=== PATIENT | female | born 2000 | race Caucasian/White ===

== ENCOUNTER 2024-06-08 15:39 | Emergency (ER) | payer MEDICAID, SELFPAY ==
[2024-06-08 15:42] VITALS: BMI 26.6
[2024-06-08 15:47] VITALS: BP 121/80; PULSE 80; RESP 20; TEMP 36.5; O2SAT 100
--- NOTE | 2024-06-08 15:57 | XR_ITS ---
Examination: Complete OB ultrasound, less than 14 weeks, transabdominal Date and time of exam: June 08, 2024, 1640 hrs. Indications: Nausea vomiting pelvic cramping beginning 2 days ago Technique: Obstetrical ultrasound images less than 14 weeks performed via transabdominal imaging Findings: Uterus 9.0 cm, intrauterine gestational sac 1.5 cm corresponds to 6 weeks 2 days gestational age No pole, no cardiac activity Right ovary 2.0 cm arterial flow Left ovary 2.8 cm arterial flow Impression: Empty intrauterine gestational sac corresponding to 6 weeks 2 days gestational age Recommend short-term follow-up transvaginal pelvic sonography to exclude embryonic demise
--- NOTE | 2024-06-08 15:58 | PD.EDADULT ---
ED General RME/HPI General Chief complaint: Abdominal Pain Stated complaint: 10Wk ABD PAIN Time Seen by Provider: 06/08/24 15:50 Arrival date/time: 06/08/24 15:39 RME / HPI RME / HPI narrative: 24-year-old female patient 2 para 1, about 10 weeks , came in for evaluation regarding pelvic pain. Patient is having pelvic pain, for the last few days described as dull ache severity mild associated with vomiting, cannot take anything down for the last 3 days. Patient feels dehydrated. Denies any fever denies any other complaints. Patient also denies any vaginal bleeding spotting dysuria frequency. Have not seen any WET MACHINE CUTTER for checkup yet. Related Data Home Medications ?Medication ?Instructions ?Recorded ?Confirmed vits no.124-ferrous fum tab 09/29/22 27 mg iron-folic acid 800 mcg tablet ( Vitamin) Previous Rx's ?Medication ?Instructions ?Recorded labetalol 100 mg tablet 300 mg (3 x 100 mg) PO BID 30 days 10/14/22 #180 tabs nifedipine 30 mg tablet,extended 60 mg (2 x 30 mg) PO QDAY 30 days 10/14/22 release 24 hr #60 tabs metoclopramide HCl 10 mg tablet 10 mg PO Q6H PRN nausea and 06/08/24 (Reglan) vomiting #20 tabs Allergies Allergy/AdvReac Type Severity Reaction Status Date / Time No Known Allergies Allergy Verified 06/08/24 15:45 Review of Systems Review of Systems Narrative Review of Systems: Review of system reviewed and within normal limits except mentioned in HPI ED Exam Narrative Physical exam: VITAL SIGNS: Reviewed. GENERAL APPEARANCE: Alert and interactive, follows commands, no acute distress, HEAD AND FACE: Non-traumatic. ENT: PERRL, pink conjunctivitis, eyelid no trauma, Mucous membrane dry NECK: Supple, nontender, no nuchal rigidity. CHEST: No tenderness, no crepitus, no paradoxical movement, no retractions. LUNGS: Clear, well ventilated, symmetric, no rales, no wheezing, no ronchi, no stridor, good breath sounds bilaterally. HEART: Regular rate, regular rhythm, no murmur, no gallops. ABDOMEN: Soft, positive bowel sounds, nondistended, no guarding, nontender, no rebound, no masses, RECTAL: Deferred. GENITAL: Deferred. NEUROLOGICAL: Gross motor function intact sensory function intact, Appropriate for age. MUSCULOSKELETAL: low back nontender, full range of motion. EXTREMITIES: Nontender, full range of motion. SKIN: Color pink, dry, no rash, no lacerations, no abrasions, no contusions. LYMPHATICS: Deferred. Course Quality Measures none Orders Category Date Time Status US OB <= 14 weeks fetus Stat Exams 06/08/24 15:57 Completed ABO/RH Type Stat Lab 06/08/24 17:15 Completed Basic Metabolic Panel Stat Lab 06/08/24 17:15 Completed Beta HCG,Quantitative Stat Lab 06/08/24 17:15 Completed CBC Stat Lab 06/08/24 17:15 Completed Urinalysis Stat Lab 06/08/24 19:30 Completed Metoclopramide Inj [Reglan Inj] Med 06/08/24 15:57 Discontinued 10 mg IVP X1 ONE Ondansetron Odt [Zofran Odt] Med 06/08/24 20:26 Discontinued 4 mg PO X1 ONE Sodium Chloride 0.9% 1000 ml [Ns] 1,000 ml Med 06/08/24 15:57 Discontinued IV 999 mls/hr Sodium Chloride 0.9% 1000 ml [Ns] 1,000 ml Med 06/08/24 15:58 Discontinued IV 999 mls/hr Vital Signs Vital signs: Vital Signs Temperature 97.7 F 06/08/24 15:47 Pulse Rate 80 06/08/24 15:47 Respiratory Rate 20 06/08/24 15:47 Blood Pressure 121/80 06/08/24 15:47 Pulse Oximetry (%) 100 06/08/24 15:47 Oxygen Delivery Method Room Air 06/08/24 15:47 [facility] Patient data External records reviewed:: None Clinical information provided by:: patient Social determinants that could affect healthcare access:: none Patient has the following chronic illnesses:: None How is presenting disease/condition affected by chronic disease/condition?: no chronic disease Evaluation data The following diagnostics were reviewed and interpreted by me:: lab results and radiology exam(s) Lab and/or radiology exams considered but not ordered:: None Interpretation Summary: See results in [facility] Medications Medications considered but not ordered:: None Medication administrations:: Medication Administration History Discontinued Medications Sodium Chloride (Ns) 1,000 mls @ 999 mls/hr IV .Q1H1M ONE Stop: 06/08/24 16:57 Last Infusion: 06/08/24 18:04 Dose: Infused Documented By: Admin: 06/08/24 17:04 Dose: 999 mls/hr Documented By: JOSE Sodium Chloride (Ns) 1,000 mls @ 999 mls/hr IV .Q1H1M ONE Stop: 06/08/24 16:58 Last Infusion: 06/08/24 18:06 Dose: Infused Documented By: Admin: 06/08/24 17:06 Dose: 999 mls/hr Documented By: JOSE Metoclopramide HCl (Metoclopramide Inj 5 Mg/Ml Vial 2 Ml) 10 mg IVP X1 ONE; Protocol Stop: 06/08/24 15:58 Last Admin: 06/08/24 17:04 Dose: 10 mg Documented By: JOSE Ondansetron HCl (Ondansetron Odt 4 Mg Tabrap) 4 mg PO X1 ONE; Protocol Stop: 06/08/24 20:27 Last Admin: 06/08/24 20:39 Dose: 4 mg Documented By: JOSE IV fluids, Reglan, and Zofran Consultations Consultation(s) initiated? (list below): No Diagnosis Differential Diagnosis ED Complaint MDM: Hyperemesis gravidarum, dehydration, 6 weeks Most likely diagnosis given after review of the tests above:: Hyperemesis gravidarum, , 6 weeks Admission Indicated Admission indicated?: indicated Explain why admission is indicated or not indicated:: Stable Admission Request Was there a request for admission?: No Disposition Plan Disposition Plan: Discharge Discharge Attestation Discharge Attestation: The patien was given an opportunity to ask questions and understood the discharge instructions. Discharge instructions specifically effects, indications for sooner follow up or return to the emergency department, and the expected course of current diagnosis. Patient condition: Stable Medical Decision Making MDM Narrative MDM Narrative: 24-year-old female patient 2 para 1, about 10 weeks , came in for evaluation regarding pelvic pain. Patient is having pelvic pain, for the last few days described as dull ache severity mild associated with vomiting, cannot take anything down for the last 3 days. Patient feels dehydrated. Denies any fever denies any other complaints. Patient also denies any vaginal bleeding spotting dysuria frequency. Have not seen any WET MACHINE CUTTER for checkup yet. Ultrasound showed intra gestational sac, about 6 weeks gestation, no pole or cardiac activity noted. Results discussed with the patient. Patient's workup all came back unremarkable urinalysis is contaminated. Patient received IV fluids, total of 2 L, Reglan, and Zofran with significant for mental symptoms. Patient is tolerating p.o. fluids in the emergency room. Patient was advised to closely follow-up with WET MACHINE CUTTER next week. Differential Diagnosis Differential Diagnosis: Hyperemesis gravidarum, dehydration, 6 weeks Lab Data 06/08/24 17:15 06/08/24 17:15 Labs: Lab Results 06/08/24 06/08/24 Range/Units 17:15 19:30 WBC 12.4 H (3.6-11.0) Thou/mm3 RBC 4.76 (4.00-5.20) Miln/mm3 Hgb 14.3 (12.0-16.0) g/dL Hct 41.6 (36.0-46.0) % MCV 87 (80-100) fL MCH 30.0 (25.0-35.0) pg MCHC 34.4 (31.0-37.0) g/dl RDW Std Deviation 39.6 (36.4-46.3) fL Plt Count 240 (140-440) Thou/mm3 Neut % (Auto) 81 H (37-80) % Lymph % (Auto) 13 (10-50) % [place] % (Auto) 5 (0-12) % Eos % (Auto) 0 (0-10) % Baso % (Auto) 0 (0-2.5) % Neut # (Auto) 10.0 H (1.8-7.7) Thou/mm3 Lymph # (Auto) 1.6 (1.0-4.8) Thou/mm3 [place] # (Auto) 0.7 (0.0-0.8) Thou/mm3 Eos # (Auto) 0.0 (0.0-0.5) Thou/mm3 Baso # (Auto) 0.0 (0.0-0.2) Thou/mm3 Immature Gran # (Auto) 0.03 H (0.00-0.00) Thou/mm3 Absolute Nucleated RBC 0.00 (0.00-0.00) Thou/mm3 Immature Gran % 0 (0-0) % Nucleated RBC % 0 (0) /100 WBC Sodium 140 (136-145) mMol/L Potassium 3.7 (3.4-5.1) mMol/L Chloride 105 (98-107) mMol/L Carbon Dioxide 21.8 (20.0-31.0) mMol/L Anion Gap 13 (7-16) BUN 9 (9-23) mg/dL Creatinine 0.6 (0.6-1.3) mg/dL Estim Creat Clear Calc 156.1 (>60) mL/min eGFR > 60 (60 - ) See Note BUN/Creatinine Ratio 15 (12-20) Ratio Glucose 98 (74-106) mg/dL Calculated Osmolality 278 (275-295) Calcium 9.8 (8.3-10.6) mg/dL Beta HCG, Quant 08508 (<5.0) mIU/mL Ur Collection Type Clean Catch Urine Color Yellow (Lt Yel-Yel) Urine Clarity Clear (Clear/Hazy) Urine pH 6.5 (5.0-7.0) Ur Specific [place] 1.040 H (1.001-1.035) Urine Protein 1+ A (Neg - Trace) Urine Glucose (UA) Trace (Negative) Urine Ketones 4+ A (Negative) Urine Blood Negative (Negative) Urine Nitrite Negative (Negative) Urine Bilirubin Negative (Negative) Urine Urobilinogen (Auto) 2.0 (0.0-1.0) mg/dL Ur Leukocyte Esterase Positive (Negative) Urine RBC 0 (0-3) /hpf Urine WBC 6 H (0-5) /hpf Ur Squamous Epith Cells 7 H (0-5) /hpf Urine Bacteria Rare (None) Blood Type O Negative Blood Bank Wristband ID Yes Discharge Plan Plan Patient Disposition: HOME (Self Care) Disposition Comment: Stable Prescriptions/Referrals Prescriptions/Med Rec: New metoclopramide HCl [Reglan] 10 mg tablet 10 mg PO Q6H PRN (Reason: nausea and vomiting) Qty: 20 0RF No Action Vitamin 27 mg iron- 800 mcg Tablet nifedipine 30 mg Tablet Extended Release 24hr 60 mg PO QDAY 30 Days Qty: 60 1RF labetalol 100 mg Tablet 300 mg PO BID 30 Days Qty: 180 1RF Referrals: Eleuterio Elise MD [Primary Care Provider] - In 1 week Problem List Clinical Impression: Hyperemesis gravidarum, mild, before week Patient/Caregiver Discharge Instructions Discharge Activity: activity as tolerated Education Materials: ED Hyperemesis Gravidarum Additional Instructions: Thank you for the opportunity for serving you today. You are stable for discharged . You are advised to: Follow-up with your WET MACHINE CUTTER in 1 to 2 days Return to ED for worsening of symptoms Increase oral fluids Take medication as prescribed Print Language: Macedonian Stand Alone Forms: Aleksandra Award Info., Patient Portal Info Letter PA/STEVE Supervising Physician PA/STEVE Supervising Physician: MD Jose
[2024-06-08] MEDS: SODIUM CHLORIDE 0.9% 1000 ML 1,000 ML 999 ML IV ×2 (17:04→17:06)
[2024-06-08] MEDS: METOCLOPRAMIDE INJ 5 MG/ML VIAL 2 ML 10 MG IVP (17:04)
[2024-06-08 17:42] LABS: Basophils % (Auto) 0 % (0-2.5); Eosinophils % (Auto) 0 % (0-10); Hematocrit 41.6 % (36.0-46.0); Hemoglobin 14.3 g/dL (12.0-16.0); Immature Granulocytes % (Auto) 0 % (0-0); Immature Granulocytes Auto 0.03 Thou/mm3 (0.00-0.00); Lymphocytes # (Auto) 1.6 Thou/mm3 (1.0-4.8); Lymphocytes % (Auto) 13 % (10-50); Mean Corpuscular HGB Conc 34.4 g/dl (31.0-37.0); Mean Corpuscular Volume 87 fL (80-100); Monocytes # (Auto) 0.7 Thou/mm3 (0.0-0.8); Monocytes % (Auto) 5 % (0-12); Neutrophils % (Auto) 81 % (37-80); Nucleated Red Blood Cell % 0 /100 WBC (0); Platelet Count 240 Thou/mm3 (140-440); RDW Standard Deviation 39.6 fL (36.4-46.3); Red Blood Count 4.76 Miln/mm3 (4.00-5.20); White Blood Count 12.4 Thou/mm3 (3.6-11.0)
[2024-06-08 17:57] LABS: Anion Gap 13 (7-16); BUN/Creatinine Ratio 15 Ratio (12-20); Blood Urea Nitrogen 9 mg/dL (9-23); Calcium 9.8 mg/dL (8.3-10.6); Carbon Dioxide 21.8 mMol/L (20.0-31.0); Chloride 105 mMol/L (98-107); Creatinine (Component) 0.6 mg/dL (0.6-1.3); Estimated Creatinine Clearance 156.1 mL/min (>60); Glucose 98 mg/dL (74-106); Osmolality,Calculated 278 (275-295); Potassium 3.7 mMol/L (3.4-5.1); Sodium 140 mMol/L (136-145); eGFR > 60 See Note
[2024-06-08 18:31] LABS: Beta HCG,Quantitative 36635 mIU/mL (<5.0)
[2024-06-08 19:36] LABS: Collection Type, Urine Clean Catch; RBC,Urine 0 /hpf (0-3)
[2024-06-08 19:44] VITALS: BP 147/76; PULSE 93; RESP 18; TEMP 37; O2SAT 100
[2024-06-08 19:46] LABS: Bacteria,Urine Rare; Bilirubin,Urine Negative (Negative); Blood,Urine Negative (Negative); Clarity,Urine Clear (Clear/Hazy); Color,Urine Yellow (Lt Yel-Yel); Glucose, Urine Trace (Negative); Ketones,Urine 4+ (Negative); Leukocyte Esterase,Urine Positive (Negative); Nitrite,Urine Negative (Negative); PH,Urine 6.5 (5.0-7.0); Protein,Urine 1+ (Neg - Trace); Squamous Epithelial Cell,Urine 7 /hpf (0-5); WBC,Urine 6 /hpf (0-5)
[2024-06-08] MEDS: ONDANSETRON ODT 4 MG TABRAP PO (20:39)
== END 2024-06-08 21:28 | disposition home or self-care (01) ==
PROVIDERS: Nurse Practitioner Family; Emergency Provider Family Medicine; PCP Family Medicine
DX: O21.0 Mild hyperemesis gravidarum (principal); Z3A.10 10 weeks gestation of pregnancy
CPT/HCPCS: 36415; 76801; 80048; 81001; 84702; 85025; 86900; 86901; 96360; 99284; J2765; J7030; Q0162

== ENCOUNTER 2024-06-15 12:09 | Emergency (ER) | payer MEDICAID, SELFPAY ==
[2024-06-15 12:31] VITALS: BP 118/77; PULSE 83; RESP 18; TEMP 36.9; O2SAT 99; BMI 25.2
--- NOTE | 2024-06-15 12:43 | PD.EDFMALE ---
ED Female Urogenital RME/HPI General Chief complaint: Urogenital-Female Stated complaint: 6 weeks , vaginal bleeding since last pm Time Seen by Provider: 06/15/24 12:15 Arrival date/time: 06/15/24 12:09 RME / HPI RME / HPI Narrative: 24-year-old female patient with no significant medical history, 2 para 1, about 6 weeks , came in for evaluation regarding vaginal bleeding. Patient woke up this morning with vaginal bleeding, severity moderate. Patient denies any abdominal pain. Patient was seen here 1 week ago, for vaginal bleeding, ultrasound of the during this time showed empty gestational sac. Patient denies any other complaints. On my initial evaluation patient is not wearing any pads. Patient denies any pelvic pain denies any other complaints. Related Data Home Medications ?Medication ?Instructions ?Recorded ?Confirmed vits no.124-ferrous fum tab 09/29/22 27 mg iron-folic acid 800 mcg tablet ( Vitamin) Previous Rx's ?Medication ?Instructions ?Recorded labetalol 100 mg tablet 300 mg (3 x 100 mg) PO BID 30 days 10/14/22 #180 tabs nifedipine 30 mg tablet,extended 60 mg (2 x 30 mg) PO QDAY 30 days 10/14/22 release 24 hr #60 tabs metoclopramide HCl 10 mg tablet 10 mg PO Q6H PRN nausea and 06/08/24 (Reglan) vomiting #20 tabs Allergies Allergy/AdvReac Type Severity Reaction Status Date / Time No Known Allergies Allergy Verified 06/15/24 12:12 Review of Systems Review of Systems Narrative Review of Systems: Review of system reviewed and within normal limits except mentioned in HPI ED Exam Narrative Physical exam: VITAL SIGNS: Reviewed. GENERAL APPEARANCE: Alert and interactive, follows commands, no acute distress, HEAD AND FACE: Non-traumatic. ENT: PERRL, pink conjunctivitis, eyelid no trauma, Mucous membrane moist. NECK: Supple, nontender, no nuchal rigidity. CHEST: No tenderness, no crepitus, no paradoxical movement, no retractions. LUNGS: Clear, well ventilated, symmetric, no rales, no wheezing, no ronchi, no stridor, good breath sounds bilaterally. HEART: Regular rate, regular rhythm, no murmur, no gallops. ABDOMEN: Soft, positive bowel sounds, nondistended, no guarding, nontender, no rebound, no masses, RECTAL: Deferred. GENITAL: Deferred. NEUROLOGICAL: Gross motor function intact sensory function intact, Appropriate for age. MUSCULOSKELETAL: low back nontender, full range of motion. EXTREMITIES: Nontender, full range of motion. SKIN: Color pink, dry, no rash, no lacerations, no abrasions, no contusions. LYMPHATICS: Deferred. Course Quality Measures none Orders Category Date Time Status US OB transvaginal Stat Exams 06/15/24 14:29 Completed Basic Metabolic Panel Stat Lab 06/15/24 13:09 Completed Beta HCG,Quantitative Stat Lab 06/15/24 13:09 Completed CBC Stat Lab 06/15/24 13:09 Completed Vital Signs Vital signs: Vital Signs Temperature 98.5 F 06/15/24 12:31 Pulse Rate 83 06/15/24 12:31 Respiratory Rate 18 06/15/24 12:31 Blood Pressure 118/77 06/15/24 12:31 Pulse Oximetry (%) 99 06/15/24 12:31 Oxygen Delivery Method Room Air 06/15/24 12:31 Urogenital - Female MDM Narrative MDM Narrative:: 24-year-old female patient with no significant medical history, 2 para 1, about 6 weeks , came in for evaluation regarding vaginal bleeding. Patient woke up this morning with vaginal bleeding, severity moderate. Patient denies any abdominal pain. Patient was seen here 1 week ago, for vaginal bleeding, ultrasound of the during this time showed empty gestational sac. Patient denies any other complaints. On my initial evaluation patient is not wearing any pads. Patient denies any pelvic pain denies any other complaints. Patient's ultrasound today showed single live intrauterine gestation about 6 weeks, with large subchorionic hemorrhage Results discussed with the patient. Patient's hCG doubled from a week ago. Patient is probably having threatened secondary to large subchorionic hemorrhage. Was advised to do pelvic rest no sex for 1 week or until cleared by COMPENSATION SUPERVISOR Patient data External records reviewed:: None Clinical information provided by:: patient Social determinants that could affect healthcare access:: none Patient has the following chronic illnesses:: None How is presenting disease/condition affected by chronic disease/condition?: no chronic disease Evaluation data The following diagnostics were reviewed and interpreted by me:: lab results and radiology exam(s) Lab and/or radiology exams considered but not ordered:: None Interpretation Summary: See results in MDM Medications / Prescriptions Medications or Prescriptions considered but not ordered:: None Medication administrations:: None Consultations Consultation(s) initiated? (list below): No Diagnosis Urogenital Female Differential Diagnosis: other (Threatened , incomplete , subchorionic hemorrhage) Most likely diagnosis given after review of the tests above:: Threatened , Admission Indicated Admission indicated?: not indicated Explain why admission is indicated or not indicated:: Stable discharge Admission Request Was there a request for admission?: No Disposition Plan Disposition Plan: Discharge Discharge Attestation Discharge Attestation: The patient was given an opportunity to ask questions and understood the discharge instructions. Discharge instructions specifically effects, indications for sooner follow up or return to the emergency department, and the expected course of current diagnosis. Patient condition: Stable Discharge Plan Plan Patient Disposition: HOME (Self Care) Disposition Comment: Stable Prescriptions/Referrals Prescriptions/Med Rec: No Action metoclopramide HCl [Reglan] 10 mg tablet 10 mg PO Q6H PRN (Reason: nausea and vomiting) Qty: 20 0RF Vitamin 27 mg iron- 800 mcg Tablet nifedipine 30 mg Tablet Extended Release 24hr 60 mg PO QDAY 30 Days Qty: 60 1RF labetalol 100 mg Tablet 300 mg PO BID 30 Days Qty: 180 1RF Referrals: Eleuterio Elise MD [Primary Care Provider] - In 1 week Problem List Clinical Impression: , threatened Patient/Caregiver Discharge Instructions Education Materials: ED Possible Miscarriage ... Additional Instructions: Thank you for the opportunity for serving you today. You are stable for discharged . You are advised to: Follow-up with your PCP in 1 to 2 days Return to ED for worsening of symptoms Increase oral fluids Pelvic rest no sex for 1 week or until cleared by COMPENSATION SUPERVISOR Print Language: Bolivian Stand Alone Forms: Aleksandra Award Info., Patient Portal Info Letter
[2024-06-15 13:28] LABS: Basophils # (Auto) 0.1 Thou/mm3 (0.0-0.2); Basophils % (Auto) 1 % (0-2.5); Eosinophils # (Auto) 0.1 Thou/mm3 (0.0-0.5); Eosinophils % (Auto) 1 % (0-10); Hematocrit 41.4 % (36.0-46.0); Immature Granulocytes % (Auto) 1 % (0-0); Immature Granulocytes Auto 0.04 Thou/mm3 (0.00-0.00); Lymphocytes # (Auto) 1.9 Thou/mm3 (1.0-4.8); Lymphocytes % (Auto) 25 % (10-50); Mean Corpuscular HGB Conc 33.8 g/dl (31.0-37.0); Mean Corpuscular Hemoglobin 30.2 pg (25.0-35.0); Mean Corpuscular Volume 89 fL (80-100); Monocytes # (Auto) 0.4 Thou/mm3 (0.0-0.8); Monocytes % (Auto) 5 % (0-12); Neutrophils # (Auto) 5.3 Thou/mm3 (1.8-7.7); Neutrophils % (Auto) 69 % (37-80); Nucleated Red Blood Cell % 0 /100 WBC (0); Platelet Count 212 Thou/mm3 (140-440); RDW Standard Deviation 40.9 fL (36.4-46.3); Red Blood Count 4.63 Miln/mm3 (4.00-5.20); White Blood Count 7.7 Thou/mm3 (3.6-11.0)
[2024-06-15 14:18] LABS: Anion Gap 10 (7-16); BUN/Creatinine Ratio 10 Ratio (12-20); Beta HCG,Quantitative 73268 mIU/mL (<5.0); Blood Urea Nitrogen 6 mg/dL (9-23); Calcium 9.6 mg/dL (8.3-10.6); Carbon Dioxide 25.5 mMol/L (20.0-31.0); Chloride 104 mMol/L (98-107); Creatinine (Component) 0.6 mg/dL (0.6-1.3); Estimated Creatinine Clearance 141.8 mL/min (>60); Glucose 89 mg/dL (74-106); Osmolality,Calculated 274 (275-295); Sodium 139 mMol/L (136-145); eGFR > 60 See Note
--- NOTE | 2024-06-15 14:29 | XR_ITS ---
Examination: OB Transvaginal ultrasound of the pelvis, complete Technique: Transvaginal sonographic images pelvis performed using elizondo scale imaging Exam date and time: June 15, 2024 1528 hrs. Indications: Onset vaginal bleeding today Findings: Uterus 9.4 cm CRL 0.7 cm corresponds to 6 weeks 4 days gestational age Cardiac motion 137 BPM Large subchorionic hemorrhage 3.9 x 3.7 cm Right ovary 2.0 cm arterial flow Left ovary 2.4 cm arterial flow Impression: Viable intrauterine gestation 6 weeks 4 days, recommend short-term follow-up pelvic sonography given the large subchorionic hemorrhage.
--- NOTE | 2024-06-15 16:55 | PRELIM_ITS ---
Obstetric ultrasound (transvaginal). June 15, 2024 at 1523 hours Clinical history: Vaginal bleeding Technique: Real-time ultrasound was performed using Duplex scanning including arterial inflow, venous outflow, color and spectral Doppler analysis of both ovaries. Comparison: June 08, 2024. Findings: There is an intrauterine gestation with a single live fetus of mean gestational age 6 weeks and 4 days (CRL= 0.74 cm). The yolk sac is demonstrated. There appears to be a 3.9 x 2.2 x 3.7 cm subchorionic hemorrhage adjacent to the gestational sac. cardiac activity is present at heart rate of 137 beats per minute. Estimated due date by ultrasound is 02/04/2025. The uterus measures 9.4 x 4.6 x 7 cm. The right ovary measures 2 x 1.5 x 1.7 cm and is unremarkable. The left ovary measures 2.4 x 1.7 x 1.9 cm and is unremarkable. There is no free fluid in the pelvis. Impression: Intrauterine gestation with a single live fetus of mean gestational age 6 weeks and 4 days. Subchorionic hemorrhage as described. Recommend follow-up. Report Electronically Signed By: Jh Reeder 06/15/2024 4:55:05 PM [EST]
== END 2024-06-15 16:38 | disposition home or self-care (01) ==
PROVIDERS: Nurse Practitioner Family; Emergency Provider Emergency Medicine; PCP Family Medicine
DX: O20.0 Threatened abortion (principal); Z3A.01 Less than 8 weeks gestation of pregnancy
CPT/HCPCS: 36415; 76817; 80048; 84702; 85025; 99284

== ENCOUNTER 2025-01-27 13:22 | Observation (INO) | payer MEDICAID, SELFPAY ==
[2025-01-27] VITALS (11 sets, daily range): BP systolic 108–133; BP diastolic 55–70; PULSE 85–99; RESP 18–99; TEMP 36.7; BMI 34.2
[2025-01-27 13:51] LABS: Collection Type, Urine Clean Catch
[2025-01-27 14:12] LABS: Bacteria,Urine Rare; Bilirubin,Urine Negative (Negative); Blood,Urine Negative (Negative); Clarity,Urine Clear (Clear/Hazy); Color,Urine Yellow (Lt Yel-Yel); Glucose, Urine Negative (Negative); Ketones,Urine Negative (Negative); Leukocyte Esterase,Urine Positive (Negative); Nitrite,Urine Negative (Negative); PH,Urine 7.0 (5.0-7.0); Protein,Urine Trace (Neg - Trace); RBC,Urine 1 /hpf (0-3); Specific Gravity,Urine 1.025 (1.001-1.035); Squamous Epithelial Cell,Urine 7 /hpf (0-5); Urobilinogen,Urine Negative mg/dL (0.0-1.0); WBC,Urine 4 /hpf (0-5)
[2025-01-27 14:16] LABS: Creatinine,Random Urine 129 mg/dL (30-125); Protein Total, Random Urine 30 mg/dL (1-14)
[2025-01-27 14:28] LABS: Basophils # (Auto) 0.0 Thou/mm3 (0.0-0.2); Basophils % (Auto) 0 % (0-2.5); Eosinophils # (Auto) 0.0 Thou/mm3 (0.0-0.5); Eosinophils % (Auto) 0 % (0-10); Hematocrit 33.8 % (36.0-46.0); Hemoglobin 11.2 g/dL (12.0-16.0); Immature Granulocytes Auto 0.07 Thou/mm3 (0.00-0.00); Lymphocytes # (Auto) 1.6 Thou/mm3 (1.0-4.8); Lymphocytes % (Auto) 15 % (10-50); Mean Corpuscular HGB Conc 33.1 g/dl (31.0-37.0); Mean Corpuscular Hemoglobin 29.2 pg (25.0-35.0); Mean Corpuscular Volume 88 fL (80-100); Monocytes # (Auto) 0.6 Thou/mm3 (0.0-0.8); Monocytes % (Auto) 5 % (0-12); Neutrophils # (Auto) 8.4 Thou/mm3 (1.8-7.7); Neutrophils % (Auto) 78 % (37-80); Nucleated Red Blood Cell # 0.00 Thou/mm3 (0.00-0.00); Nucleated Red Blood Cell % 0 /100 WBC (0); Platelet Count 187 Thou/mm3 (140-440); RDW Standard Deviation 43.5 fL (36.4-46.3); Red Blood Count 3.84 Miln/mm3 (4.00-5.20); White Blood Count 10.7 Thou/mm3 (3.6-11.0)
[2025-01-27 14:47] LABS: Fibrinogen 525 mg/dL (175-375); INR 0.9 (0.9-1.3); Partial Thromboplastin Time 26.1 Seconds (22.0-36.0); Prothrombin Time 9.8 Seconds (9.0-12.2)
[2025-01-27 14:57] LABS: Alanine Aminotransferase < 7 U/L (10-49); Albumin, Serum 3.8 gm/dL (3.5-5.0); Albumin/Globulin Ratio 1.9 (1.2-2.2); Alkaline Phosphatase 225 U/L (46-116); Anion Gap 10 (7-16); Aspartate Amino Transferase 14 U/L (0-34); BUN/Creatinine Ratio 12 Ratio (12-20); Bilirubin,Total 0.3 mg/dL (0.3-1.2); Blood Urea Nitrogen 6 mg/dL (9-23); Calcium 9.2 mg/dL (8.3-10.6); Calcium (Corrected) 9.4 mg/dL (8.5-10.1); Carbon Dioxide 22.5 mMol/L (20.0-31.0); Chloride 108 mMol/L (98-107); Creatinine (Component) 0.5 mg/dL (0.6-1.3); Estimated Creatinine Clearance 211.9 mL/min (>60); Globulin 2.0 gm/dL (2.3-3.5); Glucose 116 mg/dL (74-106); Osmolality,Calculated 278 (275-295); Potassium 4.0 mMol/L (3.4-5.1); Sodium 140 mMol/L (136-145); Total Protein 5.8 gm/dL (5.7-8.2); Uric Acid 4.2 mg/dL (3.1-7.8); eGFR > 60 See Note
== END 2025-01-27 15:15 | disposition home or self-care (01) ==
PROVIDERS: Admitting Provider Specialist; Visit Provider Specialist
DX: O36.8130 Decreased fetal movements, third trimester, not applicable or unspecified (principal); Z3A.39 39 weeks gestation of pregnancy
CPT/HCPCS: 36415; 59025; 59899; 80053; 81001; 82570; 84156; 84550; 85025; 85384; 85610; 85730

== ENCOUNTER 2025-01-31 12:59 | Observation (INO) | payer MEDICAID, SELFPAY ==
[2025-01-31] VITALS (21 sets, daily range): BP systolic 121–128; BP diastolic 62–70; PULSE 84–105; RESP 18; TEMP 36.9; O2SAT 94–100; BMI 34.4
--- NOTE | 2025-01-31 13:03 | XR_ITS ---
Examination: Complete OB ultrasound greater than 14 weeks Date and time of exam: 01/31/2025 at 1:24 p.m. INDICATION: Patient fell on left flank pain region today. Assessment for placental abruption. COMPARISON: First trimester pelvic ultrasound 06/15/2024. Findings: No evidence for placental abruption. The placenta is fundal in location, grade 2. Multiple placental lakes are seen, the largest measuring 2.9 x 1.9 x 2.4 cm. Single live IUP in cephalic position with the spine on the maternal right side. cardiac motion: 169 bpm. EFW: 3456 g +/-512 g. Composite estimated gestational age based on BPD, head circumference, abdominal circumference, femur length is 38 weeks 3 days with BE of 02/11/2025. Clinical age is 39 weeks 4 days with BE of 02/03/2025. Survey of intracranial anatomy, spinal anatomy, abdominal anatomy, four-chamber heart performed with no abnormalities identified. No hydronephrosis. bladder, stomach and umbilical cord insertion are seen. All regions of the visualized spine appear intact. The cervix is measured at 3 cm in length The maternal ovaries are obscured by bowel gas. Impression: Intact fundal placenta without evidence for abruption Single live IUP in cephalic position with AUA 38 weeks 3 days, BE of 02/11/2025. Note is made of an 8-day discrepancy between clinical age and gestational age, with a clinical age of 39 weeks 4 days and BE of 02/03/2025.
== END 2025-01-31 14:50 | disposition home or self-care (01) ==
PROVIDERS: Admitting Provider Specialist; Visit Provider Specialist
DX: Z34.83 Encounter for supervision of other normal pregnancy, third trimester (principal); Z3A.38 38 weeks gestation of pregnancy
CPT/HCPCS: 59025; 59899; 76805

== ENCOUNTER 2025-02-04 19:23 | Inpatient (IN) | payer MEDICAID, SELFPAY ==
[2025-02-04] VITALS (61 sets, daily range): BP systolic 125–156; BP diastolic 70–104; PULSE 85–108; RESP 16–99; TEMP 36.8–36.9; O2SAT 95–100; BMI 34.0
[2025-02-04 20:28] LABS: Collection Type, Urine Clean Catch
[2025-02-04 20:31] LABS: Basophils # (Auto) 0.0 Thou/mm3 (0.0-0.2); Basophils % (Auto) 0 % (0-2.5); Eosinophils # (Auto) 0.0 Thou/mm3 (0.0-0.5); Eosinophils % (Auto) 0 % (0-10); Hematocrit 33.6 % (36.0-46.0); Hemoglobin 11.0 g/dL (12.0-16.0); Immature Granulocytes Auto 0.09 Thou/mm3 (0.00-0.00); Lymphocytes # (Auto) 2.0 Thou/mm3 (1.0-4.8); Lymphocytes % (Auto) 17 % (10-50); Mean Corpuscular HGB Conc 32.7 g/dl (31.0-37.0); Mean Corpuscular Hemoglobin 28.4 pg (25.0-35.0); Mean Corpuscular Volume 87 fL (80-100); Monocytes # (Auto) 0.6 Thou/mm3 (0.0-0.8); Monocytes % (Auto) 6 % (0-12); Neutrophils # (Auto) 8.9 Thou/mm3 (1.8-7.7); Neutrophils % (Auto) 76 % (37-80); Nucleated Red Blood Cell # 0.00 Thou/mm3 (0.00-0.00); Nucleated Red Blood Cell % 0 /100 WBC (0); Platelet Count 206 Thou/mm3 (140-440); RDW Standard Deviation 42.8 fL (36.4-46.3); Red Blood Count 3.87 Miln/mm3 (4.00-5.20); White Blood Count 11.6 Thou/mm3 (3.6-11.0)
[2025-02-04 20:33] LABS: Bilirubin,Urine Negative (Negative); Blood,Urine Negative (Negative); Clarity,Urine Clear (Clear/Hazy); Color,Urine Lt-Yellow (Lt Yel-Yel); Glucose, Urine Negative (Negative); Ketones,Urine Negative (Negative); Leukocyte Esterase,Urine Negative (Negative); Nitrite,Urine Negative (Negative); PH,Urine 7.0 (5.0-7.0); Protein,Urine Trace (Neg - Trace); RBC,Urine 4 /hpf (0-3); Specific Gravity,Urine 1.022 (1.001-1.035); Squamous Epithelial Cell,Urine 1 /hpf (0-5); Urobilinogen,Urine Negative mg/dL (0.0-1.0); WBC,Urine 1 /hpf (0-5)
[2025-02-04 20:38] LABS: Amphetamine/Metham Scrn,Ur OB Negative (Negative); Benzoylecgonine Screen, Ur OB Negative (Negative); Opiate Screen,Urine OB Negative (Negative); THC Screen,Urine OB Negative (Negative)
--- NOTE | 2025-02-04 20:43 | ESHP_ITS ---
Documentation for date of: 02/04/25 OB Labor/Induct. HPI History of Present Illness : 2 Para: 1 Term pregnancies: 1 pregnancies: 0 Living children: 1 History of Abortions: Spontaneous and Elective: 0 History of Vaginal deliveries: 1 History of sections: No History of : No BE: 02/03/25 Gestational Age (weeks): 40 Gestational Age (days): 1 History of present illness: H and P dictated on STAT line #9 in [facility] [id number] History of Present Adequate Care: Yes Labs Labs: Positive: Rubella Titre, Negative: RPR, Hepatitis B, HIV, Chlamydia, Gonorrhea and Group Beta Strep and Unknown: Herpes Type 1, Herpes Type 2 and Covid-19 Past Medical History Surgical History SURGICAL: Negative Section Meds Home Medications and Allergies Home Medications ?Medication ?Instructions ?Recorded ?Confirmed ?Type vits no.124-ferrous fum 1 tab PO QDAY 3 02/04/25 History 27 mg iron-folic acid 800 mcg tablet ( Vitamin) Allergies Allergy/AdvReac Type Severity Reaction Status Date / Time No Known Allergies Allergy Verified 02/04/25 19:33 OB Exam Physical Exam Vital signs: Temp Pulse Resp BP Pulse Ox 98.4 F 86 18 140/83 H 98 02/04/25 19:32 02/04/25 20:39 02/04/25 19:32 02/04/25 20:39 02/04/25 20:38 OB Results Labs 02/04/25 20:00 02/04/25 20:00 Labs: Short CBC 02/04/25 Range/Units 20:00 WBC 11.6 H (3.6-11.0) Thou/mm3 Hgb 11.0 L (12.0-16.0) g/dL Hct 33.6 L (36.0-46.0) % Plt Count 206 (140-440) Thou/mm3 Urine 02/04/25 Range/Units 19:30 Urine Color Lt-Yellow (Lt Yel-Yel) Urine Clarity Clear (Clear/Hazy) Urine pH 7.0 (5.0-7.0) Ur Specific [place] 1.022 (1.001-1.035) Urine Protein Trace (Neg - Trace) Urine Glucose (UA) Negative (Negative)
[2025-02-04 20:51] LABS: Fibrinogen 488 mg/dL (175-375); INR 0.9 (0.9-1.3); Partial Thromboplastin Time 26.4 Seconds (22.0-36.0); Prothrombin Time 9.8 Seconds (9.0-12.2)
[2025-02-04 20:59] LABS: Alanine Aminotransferase 8 U/L (10-49); Albumin, Serum 4.0 gm/dL (3.5-5.0); Albumin/Globulin Ratio 2.2 (1.2-2.2); Alkaline Phosphatase 265 U/L (46-116); Anion Gap 9 (7-16); Aspartate Amino Transferase 15 U/L (0-34); BUN/Creatinine Ratio 15 Ratio (12-20); Bilirubin,Total 0.3 mg/dL (0.3-1.2); Blood Urea Nitrogen 9 mg/dL (9-23); Calcium 9.0 mg/dL (8.3-10.6); Calcium (Corrected) 9.0 mg/dL (8.5-10.1); Carbon Dioxide 24.0 mMol/L (20.0-31.0); Chloride 107 mMol/L (98-107); Creatinine (Component) 0.6 mg/dL (0.6-1.3); Estimated Creatinine Clearance 175.7 mL/min (>60); Globulin 1.8 gm/dL (2.3-3.5); Glucose 103 mg/dL (74-106); Osmolality,Calculated 278 (275-295); Potassium 3.8 mMol/L (3.4-5.1); Sodium 140 mMol/L (136-145); Total Protein 5.8 gm/dL (5.7-8.2); Uric Acid 3.9 mg/dL (3.1-7.8); eGFR > 60 See Note
[2025-02-04 21:06] LABS: Syphilis Nonreactive (Nonreactive)
[2025-02-04] MEDS: OXYTOCIN in NS 20 units 20 UNIT/1,000 ML BAG 125 UNIT IV (23:14)
--- NOTE | 2025-02-04 23:35 | PD.LDDS ---
DS: Providers Provider Date of admission: 02/04/25 20:18 Primary care physician: Physician No Primary/Family Admitting Provider: Matthew Curtis MD Attending Provider on Admission: Matthew Curtis MD Attending Provider on DC: Matthew Curtis MD Discharging Provider: Matthew Curtis MD DS: Diagnosis Problem List Completed Was Problem List Reviewed/Reconciled?: Yes Summary/Hosp Course Brief History: H and P dictated on STAT line #[address] [facility] [id number] Peripartum Data Delivery Method: Normal Vaginal Delivery Episiotomy Description: None Time Spent with Patient Time attestation: Total time spent providing and/or coordinating discharge services: Exam Vital Signs Temp Pulse Resp BP Pulse Ox 98.4 F 90 18 138/73 H 97 02/04/25 19:32 02/04/25 23:30 02/04/25 19:32 02/04/25 23:30 02/04/25 23:16 Discharge Plan Plan Patient Disposition: HOME (Self Care) Patient condition on transfer: Stable Prescriptions/Referrals Prescriptions/Med Rec: New ibuprofen 600 mg tablet 600 mg PO Q6H PRN (Reason: pain) Qty: 30 0RF No Action Vitamin 27 mg iron- 800 mcg Tablet 1 tab PO QDAY Referrals: No Primary/Family,Physician [Primary Care Provider] Patient/Caregiver Discharge Instructions Discharge Activity: activity as tolerated Other Discharge Activity Instructions:: Follow up office 6 weeks Print Language: Rwandan Stand Alone Forms: Aleksandra Award Info., Patient Portal Info Letter Planned Discharge Date 02/06/25
--- NOTE | 2025-02-04 23:35 | PD.LDDELS ---
Data (Joshua) Data Hx Section: No : 2 Term: 1 : 0 Livin Abortions: Spontaneous & Theraputic: 0 Delivery Data (Joshua) Labor Data Initiation of labor: Spontaneous Induction/Augmentation Agent: None ROM date: 02/04/25 ROM time: 23:06 Amniotic membrane rupture type: Artificial Amniotic fluid description: Clear Delivery Data EDC: 02/03/25 EDC calculated by:: LMP/early US confirmation Onset of labor date: 02/04/25 Onset of labor time: 15:00 Complete dilation date: 02/04/25 Complete dilation time: 22:53 [place] delivery date: 02/04/25 delivery time: 23:12 Gestational age (weeks): 40 Gestational age (days): 1 Placenta delivery date: 02/04/25 Placenta delivery time: 23:28 Stage 1 total time: Labor - Stage 1 Duration 7 hours and 53 minutes Delivered by: Dr Curtis Delivery nurse: Meka Alvarez [employer] [place] nurse: Carolina Bateman RN [employer] at delivery: No Support person(s) at delivery: FOB Delivery Method Delivery method: Normal Vaginal Delivery Presentation: Vertex position: OA Anesthesia Type Anesthesia Type: Epidural Placenta Placenta delivery description: Spontaneous Cord blood sent to lab: Yes cord blood collection: Cord Blood Type Episiotomy Episiotomy description: None EBL Estimated blood loss (ml): 150 Umbilical Cord cord description: 3 Vessels and Nuchal Cord Additional Procedures None Complications Complications: None [place] Data (Joshua) [place] Data order: 1 's gender: Female Identification band number: [id number] weight (gms): 8 lb 1.455 oz Weight (pounds): 8 lbs and 1.5 ozs [place] length: 22 in 1 minute: 8 5 minutes: 9
[2025-02-04] MEDS: MINERAL OIL 30 ML UDC TOP (23:36)
[2025-02-05] VITALS (12 sets, daily range): BP systolic 127–151; BP diastolic 60–97; PULSE 80–93; RESP 16–18; TEMP 36.6–36.9; O2SAT 96–99
[2025-02-05 06:11] LABS: Basophils # (Auto) 0.1 Thou/mm3 (0.0-0.2); Basophils % (Auto) 0 % (0-2.5); Eosinophils # (Auto) 0.0 Thou/mm3 (0.0-0.5); Eosinophils % (Auto) 0 % (0-10); Hematocrit 33.5 % (36.0-46.0); Hemoglobin 10.9 g/dL (12.0-16.0); Immature Granulocytes Auto 0.08 Thou/mm3 (0.00-0.00); Lymphocytes # (Auto) 2.7 Thou/mm3 (1.0-4.8); Lymphocytes % (Auto) 17 % (10-50); Mean Corpuscular HGB Conc 32.5 g/dl (31.0-37.0); Mean Corpuscular Hemoglobin 28.4 pg (25.0-35.0); Mean Corpuscular Volume 87 fL (80-100); Monocytes # (Auto) 1.0 Thou/mm3 (0.0-0.8); Monocytes % (Auto) 6 % (0-12); Neutrophils # (Auto) 12.2 Thou/mm3 (1.8-7.7); Neutrophils % (Auto) 76 % (37-80); Nucleated Red Blood Cell # 0.00 Thou/mm3 (0.00-0.00); Nucleated Red Blood Cell % 0 /100 WBC (0); Platelet Count 188 Thou/mm3 (140-440); RDW Standard Deviation 43.6 fL (36.4-46.3); Red Blood Count 3.84 Miln/mm3 (4.00-5.20); White Blood Count 16.1 Thou/mm3 (3.6-11.0)
--- NOTE | 2025-02-05 07:44 | ESPR_ITS ---
RE: ELENA JAMES : 2000 DATE OF SERVICE: 02/05/2025 SUBJECTIVE: day #1. Patient denies any problem or complaints. She is voiding, she is ambulating, she is tolerating diet, she is passing flatus. She denies any excessive vaginal bleeding. She denies any dizziness or lightheadedness. She denies any chest pain, palpitations, shortness of breath or lower extremity pain. She denies any headache, change of vision or right upper quadrant pain. OBJECTIVE: Vital Signs: Blood pressure 147/97, heart rate 83, respirations 17, temperature is 98.4, pulse ox is 96% on room air. Lungs: Clear to auscultation bilaterally. Heart: Regular rate and rhythm. Abdomen: Fundus is firm and nontender. Extremities: Nontender. LABORATORY DATA: Hemoglobin pre-delivery is 11.2, post-delivery is 11.0. ASSESSMENT: 1. day #1. 2. Status post spontaneous vaginal delivery. 3. Gestational hypertension. PLAN: Plan is to discharge home when baby is cleared. Discharge instructions given. Follow up in the office in 6 weeks. DT: 07:00:55 TT: 07:43:00 Ref: [id number] - TID: [id number]
--- NOTE | 2025-02-05 10:24 | ESHP_ITS ---
RE: ELENA JAMES : 2000 DATE OF ADMISSION: 02/04/2025 A 24-year-old 2, para 1-0-0-1 with due date of 02/03 with intrauterine at 40 weeks and 1 day who presents to labor and delivery complaining of contractions and is noted to be 6 cm dilated per RN exam. The patient denies any leaking or bleeding. She reports normal movement. Her care is uncomplicated. She had an ultrasound done on 01/31, which showed an estimated weight of 3456 grams. She denies any headache, change of vision, or right upper quadrant pain. She denies any chest pain, palpitations, shortness of breath, or lower extremity pain. ALLERGIES: NO KNOWN DRUG ALLERGIES. MEDICATIONS: 1. multivitamin 1 p.o. daily. 2. Aspirin 81 mg p.o. daily. SOCIAL HISTORY: She is single. She denies any alcohol, drug use, or smoking. PAST MEDICAL HISTORY: Preeclampsia without severe features. OB HISTORY: 09/2022, 40 weeks 5 days normal vaginal delivery 8 pound 8 ounces complicated by preeclampsia without severe features. PAST SURGICAL HISTORY: Denies. FAMILY HISTORY: Denies. REVIEW OF SYSTEMS: As above. PHYSICAL EXAM: VITAL SIGNS: Blood pressure is 140/90, heart rate 88, respiration 18, temperature is 98.6. HEENT: Oropharynx and sclerae are clear. LUNGS: Clear to auscultation bilaterally. HEART: Regular rate and rhythm. ABDOMEN: Gravid consistent with estimated weight 3400 grams. PELVIC EXAM: See RN notes. EXTREMITIES: Nontender. SKIN: No gross rashes or lesions. NEUROLOGICAL EXAM: No focal deficit. ASSESSMENT AND PLAN: Intrauterine at 40 weeks and 1 day, gestational hypertension, active labor, anticipate spontaneous vaginal delivery. Informed consent was obtained. The patient was made aware of the risks, complications, alternatives, and benefits of operative vaginal delivery and delivery and she agrees with these modes of delivery if indicated. DT: 20:43:21 TT: 22:11:00 Ref: [id number] - TID: [id number] [email or web address]
--- NOTE | 2025-02-05 11:26 | PC.SS ---
FRONT END ENGINEER conducted bedside contact with the patient to address nursing referral indicating patient possessed history of THC.? Toxicology report upon admission negative.? FRONT END ENGINEER introduced self and role.? FRONT END ENGINEER discussed basis of referral.? Patient confirmed recreational use of THC.? Patient stated that upon confirmation of , ceased use.? Patient states not planning to continue recreational use of THC.? Infant, Eran; is the patient?s second child.? Infant was delivered naturally.? Patient plans of infant.? OB services provided by Dr. Curtis.? Patient confirms consistency with OB appointments.? Patient is aligned with SNAP, TANF and WIC. ?Patient denies history of alcohol/drug abuse.? Patient denies CWS intervention.? Patient denies episodes of domestic violence.? Patient denies possessing a history of mental health, reports no current possession of depression or anxiety.? Patient has access to appropriate supplies and equipment; to include a car seat.? FOB, Kaushal Ramirez will be involved in the rearing of the .? FOB will provide transportation upon discharge.? Patient describes possessing support system consisting of FOB, mother and extended family.? FRONT END ENGINEER provided the patient with community resources to include [facility] and Warm Line.? No further intervention required at this time, social worker aide will be available to address any further concerns.? FRONT END ENGINEER updated bedside nurse.?
[2025-02-06 03:51] VITALS: BP 136/87; PULSE 72; RESP 16; TEMP 36.6; O2SAT 96
--- NOTE | 2025-02-06 08:09 | ESPR_ITS ---
RE: ELENA JAMES : 2000 DATE OF SERVICE: 02/06/2025 SUBJECTIVE: day number 1. Patient denies any problem or complaint. OBJECTIVE: Vital Signs: Stable. She is afebrile. ABDOMEN: Fundus is firm. EXTREMITIES: Nontender. LABORATORY DATA: Hemoglobin pre-delivery is 11.0, post-delivery is 10.9. ASSESSMENT AND PLAN: day number 1 status post spontaneous vaginal delivery. Plan: Discharge home when baby is cleared. Discharge instructions given. Follow up in the office in 6 weeks. DT: 07:59:58 TT: 08:09:00 Ref: [id number] - TID: [id number]
[2025-02-06 08:10] VITALS: BP 131/83; PULSE 79; RESP 16; TEMP 36.6; O2SAT 96
[2025-02-06 10:48] VITALS: BP 136/99; PULSE 74; RESP 15; TEMP 36.7; O2SAT 97
== END 2025-02-06 12:30 | disposition home or self-care (01) | DRG 560 ==
LOC: S4SX 23:32 → S4NX 02-05 01:48
PROVIDERS: Admitting Provider Specialist; Visit Provider Specialist
DX: O48.0 Post-term pregnancy (principal); O13.4 Gestational [pregnancy-induced] hypertension without significant proteinuria, complicating childbirth; O69.81X0 Labor and delivery complicated by cord around neck, without compression, not applicable or unspecified; Z37.0 Single live birth; Z3A.40 40 weeks gestation of pregnancy
CPT/HCPCS: 36415; 80053; 80307; 81001; 84550; 85025; 85384; 85461; 85610; 85730; 86780; 86850; 86900; 86901; J2590; J2790; J2795; J3010; A9270